=== PATIENT | female | born 1980 ===

== ENCOUNTER 2016-10-24 21:49 | Emergency (ER) | payer BC, MEDICAID ==
[2016-10-24 21:59] VITALS: BP 126/65; PULSE 82; RESP 16; TEMP 98.8; O2SAT 98
--- NOTE | 2016-10-24 22:16 | C.PDOC ---
History Of Present Illness 36 year old female presents to ED with complaints of bilateral eye redness, itching for one week and upper back pain starting yesterday. Patient states she was seen by her PCP Dr Ahmadi 10/21/16 and given ofloxacin eye drops. She has been using the drops and still feels itching to eyes. Her back pain is described as aching non-radiating pain starts at base of neck to mid back and shoulders, and worsened with movement. Denies any headache, injury, numbness, weakness. Time Seen by Provider: 10/24/16 22:05 Chief Complaint (Nursing): Eye Problem History Per: Patient History/Exam Limitations: no limitations Onset/Duration Of Symptoms: Days Current Symptoms Are (Timing): Still Present Reports Recently: Treated By A Physician Past Medical History Reviewed: Historical Data, Nursing Documentation, Vital Signs Vital Signs: Last Vital Signs Temp 98.8 F 10/24/16 21:56 Pulse 82 10/24/16 21:56 Resp 16 10/24/16 21:56 BP 126/65 10/24/16 21:56 Pulse Ox 98 10/24/16 22:19 - Medical History PMH: No Chronic Diseases Surgical History: Family History: States: Unknown Family Hx - Social History Hx Alcohol Use: Yes Hx Substance Use: No - Immunization History Hx Tetanus Toxoid Vaccination: No Hx Influenza Vaccination: No Hx Pneumococcal Vaccination: No Review Of Systems Constitutional: Negative for: Fever, Malaise Eyes: Positive for: Eyelid Inflammation, Redness. Negative for: Vision Change ENT: Negative for: Ear Pain, Nose Pain, Throat Pain Cardiovascular: Negative for: Chest Pain, Palpitations Respiratory: Negative for: Cough, Shortness of Breath Gastrointestinal: Negative for: Vomiting, Abdominal Pain, Diarrhea Genitourinary: Negative for: Dysuria Musculoskeletal: Positive for: Back Pain (upper back) Skin: Negative for: Rash Neurological: Negative for: Weakness, Numbness, Headache, Dizziness Physical Exam - Physical Exam Appears: Non-toxic, No Acute Distress Skin: Warm, Dry, No Diaphoretic, No Rash Head: Atraumatic, Normacephalic Eye(s): bilateral: PERRL, EOMI, Other (conjunctival injection, no discharge), left: Eyelid Inflammation Neck: Normal ROM, No Midline Cervical Tenderness, No Paracervical Tenderness, No Step Off Deformity Chest: Symmetrical Cardiovascular: Rhythm Regular Respiratory: Normal Breath Sounds Back: Paraspinal Tenderness (trapezius muscle tenderness ) Extremity: Bilateral: Atraumatic, Normal Color And Temperature, Normal ROM Neurological/Psych: Oriented x3, Normal Speech Gait: Steady ED Course And Treatment O2 Sat by Pulse Oximetry: 98 Medical Decision Making Medical Decision Makin36 year old female with eye complaint and back complaint. Eye exam consistent with conjunctivitis, and currently being treated. No signs of orbital cellulitis. Back exam shows reproducible muscle tenderness. Patient treated with benadryl and ibuprofen. Upon reevaluation she reports relief of pruritus and mild pain improvement. Patient advised to take antihistamine and analgesic. Will DC with rx Disposition Counseled Patient/Family Regarding: Diagnosis, Need For Followup, Rx Given - Disposition Referrals: Maritza Ahmadi [Staff Provider] - Disposition: HOME/ ROUTINE Disposition Time: 22:31 Condition: STABLE Additional Instructions: Continue with eye drops as prescribed Take daily allergy medicine to help with itching Take ibuprofen as needed for back pain and muscle relaxant as needed Please follow up with your primary doctor Prescriptions: Cyclobenzaprine [Cyclobenzaprine HCl] 10 mg PO TID #21 tab Ibuprofen [Motrin] 600 mg PO Q8 #30 tab Loratadine [Claritin] 10 mg PO DAILY #30 tab Instructions: Conjunctivitis (ED), Back Pain (ED) Forms: [email or web address] (Spanish) Print Language: FRENCH - POA Present On Arrival: None - Clinical Impression Clinical Impression: Conjunctivitis, Upper back pain - PA / OPHTHALMIC ASST / Resident Statement MD/DO has reviewed & agrees with the documentation as recorded.
== END 2016-10-24 22:49 | disposition home or self-care (01) ==
LOC: C.ER 21:49
DX: H10.9 Unspecified conjunctivitis (principal); M54.6 Pain in thoracic spine